=== PATIENT | female | born 1945 | race Caucasian/White ===

== ENCOUNTER 2018-06-26 05:26 | Day surgery (SDC) | payer MEDICARE, OTHER, SELFPAY ==
[2018-06-26] VITALS (13 sets, daily range): BP systolic 89–170; BP diastolic 47–106; PULSE 52–56; RESP 16; TEMP 35.9–36.1; O2SAT 94–100; BMI 33.3
--- NOTE | 2018-06-26 06:14 | HP.PCM_ITS ---
Problem List (1) Family history of malignant neoplasm of colon in first degree relative diagnosed when younger than 60 years of age Status: Acute History of Present Illness Date of Admission: 06/26/18 The patient is a 72 year old F who presents for surveillance colonoscopy based upon a family history of colon cancer in her brother. Her last colonoscopy was 5 years ago. She has had some mild intentional weight loss. She denies bright red blood per rectum or melena. No abdominal pain. She states that she is not previously had a colon cancer or colon polyps. She otherwise is enjoying good health. She has not had any recent hospitalizations. She presents via our open access program today. Past Medical History Allergies Androgenic Anabolic Steroid Allergy (Verified 11/26/13 11:19) Other Home Medications: Ambulatory Orders Medication Instructions Recorded Aspirin E.C. [Ecotrin] 81 mg PO DAILY@0800 11/26/13 Atorvastatin Calcium [Lipitor] 40 mg PO QHS 11/26/13 Ca/D3/Mag Ox/Zinc/Fishing Vessel Captain/[place]ingo/Bor 1 each PO DAILY 11/26/13 [Calcium 600+D3 Plus Caplet] Guar Gum [Fiber] 500 mg PO DAILY 11/26/13 Losartan Potassium [Cozaar] 100 mg PO QHS 11/26/13 Metoprolol(XL)Succ [Toprol Xl 50 mg PO BID 11/26/13 (Beta Trisha)] Amlodipine [Norvasc] 5 mg PO QHS 06/25/18 Cholecalciferol (VIT D3) [Vitamin 1,000 unit PO BID 06/25/18 D] CycloSPORINE Ophthalmic [Restasis 1 drop EACH EYE BID 06/25/18 Ophthalmic] Dorzolamide HCL/Timolol [Cosopt 1 drop EACH EYE BID 06/25/18 Opth Drops] Latanoprost 0.005% [Xalatan 1 drop RIGHT EYE QHS 06/25/18 Opthalmic] Fourmile-3 Fatty Acids/Fish Oil [Fish 1 each PO BID 06/25/18 Oil 1,000 mg Capsule] Smoking Status: Never smoker Tobacco Use: Non-smoker Review of Systems Constitutional: Denies: Anorexia HEENT: Denies: Difficulty Swallowing Cardiovascular: Denies: Chest Pain Respiratory: Denies: Cough Gastrointestinal: Denies: Abdominal Pain, Hematochezia, Melena Psychiatric: Denies: Anxiety Endocrine: Reports: Change in Body Habitus VTE Information - Inpt Only VTE Present on Admission: No Patient Problems: Active and Suspected Problems Family history of malignant neoplasm of colon in first degree relative diagnosed when younger than 60 years of age (Acute) - Physical Exam General: Alert, Oriented x3, Cooperative, No apparent distress HEENT: Atraumatic Oral: Moist Mucosa Lungs: Clear to auscultation Cardiovascular: Regular rate, Regular Rhythm Abdomen: Bowel Sounds Present, Soft, Non Tender Psych/Mental Status: Normal Affect Vital Signs Temp Pulse Resp BP Pulse Ox 96.7 F L 56 L 16 132/75 H 100 06/26/18 05:52 06/26/18 05:52 06/26/18 05:52 06/26/18 05:52 06/26/18 05:52 Oxygen Delivery Method Room Air Weight: 170 lb 6.677 oz Body Mass Index (BMI) 33.3 Assessment/Plan All Active Problems Family history of malignant neoplasm of colon in first degree relative diagnosed when younger than 60 years of age (Acute) I am recommending to the patient a colonoscopy with possible biopsy or polypectomy as indicated. She is aware of the technique, benefits, risks, alternatives. She has had an opportunity to ask and have questions answered. We will proceed with IV sedation. As noted she presents via open access. Taj Champion M.D., F.A.C.S.
--- NOTE | 2018-06-26 07:05 | OP.ENDO_ITS ---
06/26/2018 Janusz Broderick Re : Colonoscopy procedure for Jil Hanna Dear Meggan This procedure was performed on Tuesday, June 26, 2018. My impressions and recommendations are as follows: Impressions : - Hemorrhoids found on perianal exam. - Diverticulosis in the sigmoid colon and in the descending colon. - The examination was otherwise normal. - No specimens collected. Recommendations : - Discharge patient to home. - Resume previous diet. - Continue present medications. - Repeat colonoscopy in 5 years for surveillance. My findings are described in the full procedure note, which is enclosed. If I can be of further assistance, please feel free to contact me at Doctor phone number(s): Work: . Sincerely, Taj Champion MD 06/26/2018 7:04:33 AM This report has been signed electronically.
== END 2018-06-26 08:51 | disposition home or self-care (01) ==
LOC: EN 05:27 → AC 05:30
PROVIDERS: Family Provider Family Medicine; PCP Family Medicine; Referring Provider Family Medicine; Visit Provider Surgery
PROC: 0DJD8ZZ Inspection of Lower Intestinal Tract, Via Natural or Artificial Opening Endoscopic (ICD-10-PCS; CPT 45378; principal; 2018-06-26 06:25)
DX: Z12.11 Encounter for screening for malignant neoplasm of colon (principal); K57.30 Diverticulosis of large intestine without perforation or abscess without bleeding; K64.9 Unspecified hemorrhoids; Z80.0 Family history of malignant neoplasm of digestive organs
CPT/HCPCS: 45378; 99152; 99153; J7120

== ENCOUNTER → 2019-07-22 | Outpatient (CLI) | payer MEDICARE, OTHER, SELFPAY ==
[2018-06-26 05:52] VITALS: BMI 33.3
--- NOTE | 2019-07-22 12:18 | BI_ITS ---
MAMMOGRAPHY - BILATERAL SCREENING REASON FOR EXAM: Female, 73 years old. Routine annual screening examination. PERTINENT HISTORY: FAM HX PAT 1ST COUSIN 70''S STEREO NEEDLE BX 1994? WHICH BREAST RT EXC BX 1988 LT BREAST IMF AREA TEARS EASILY TECHNIQUE: Digital bilateral breast pankaj (3D mammographic acquisition) in the CC and MLO projections. 2-D mediolateral oblique (MLO) and craniocaudad (CC) views of both breasts were obtained. CAD: Full Field Digital Mammography with Computer Added Detection was performed. COMPARISON: 02/18/2016 FINDINGS: Breast Composition: There are scattered areas of fibroglandular density. There are no dominant masses or suspicious calcifications. No other significant abnormalities are identified. BI/SCREEN MAMM (CAD) W/PANKAJ BILAT IMPRESSION: Stable bilateral screening mammogram. Yearly follow-up mammogram recommended. (A) ASSESSMENT CATEGORY: BIRADS Category 2: Benign. A letter regarding these results will be sent to the patient by the facility within 30 days. Approximately 10% of breast cancers are not detected by mammography. A normal mammogram should not delay biopsy of a clinically suspicious abnormality. [id number] Electronically Signed: Annelise Alicea, at 12:13 EDT Tel , Service support ,
== END | disposition home or self-care (01) ==
LOC: OPBI 12:18
PROVIDERS: PCP Family Medicine; Referring Provider Nurse Practitioner Women's Health; Visit Provider Nurse Practitioner Women's Health
DX: Z12.31 Encounter for screening mammogram for malignant neoplasm of breast (principal)
CPT/HCPCS: 77063; 77067

== ENCOUNTER → 2019-07-30 12:50 | Outpatient (CLI) | payer MEDICARE, OTHER, SELFPAY ==
[2019-07-22 13:20] VITALS: BMI 33.3
--- NOTE | 2019-07-30 12:58 | BD_ITS ---
STUDY: DUAL ENERGY X-RAY ABSORPTIOMETRY / DXA REASON FOR EXAM: Female, 73 years old. CLINICAL PRACTICE CONSULTANT -- TAKES DIURETIC NEEDED -- TAKES MULTIVITAMIN -- HX OF TAKING FOSAMAX -- DOES LITTLE EXERCISE -- FAMILY HX OF OSTEO -- DM OF 0.5 INCH TECHNIQUE: Bone Mineral Density (BMD) measurements of lumbar spine and bilateral hips were obtained. COMPARISON: Comparison is made with prior examination dated November 10, 2016. FINDINGS: Lumbar Spine (L1-L4): g/cm2 (1.204) / T-score (0.3) / Z-score (2.1) Findings are suggestive of normal bone density with a low fracture risk. Left Femur Total: g/cm2 (0.991) / T-score (-0.1) / Z-score (1.6) Left Femoral Neck: g/cm2 (0.911) / T-score (-0.9) / Z-score (1.0) Right Femur Total: g/cm2 (0.997) / T-score (-0.1) / Z-score (1.7) Right Femoral Neck: g/cm2 (0.860) / T-score (-1.3) / Z-score (0.7) The T-Scores on the most recent prior examination were: Lumbar Spine (L1-L4): There has been worsening of bone density since the previous examination. Left Femur Total: which represents a worsening of 4.6%. Right Femur Total: which represents a worsening of 4.5%. BD/Dexa Bone Density Study IMPRESSION: The patient is considered osteopenic as outlined below according to World Will Organization (WHO) criteria with a low fracture risk. There has been worsening of bone density since the previous examination. Reference Information: The T-score is the number of standard deviations above or below the standard which is normal for young adults at their peak bone mineral density. The World Health Organization (WHO) interprets the T-scores as follows: Above -1 Normal bone density Between -1 and -2.5 Osteopenia Equal to / or below -2.5 Osteoporosis As a practical clinical guideline, osteopenia may be graded as follows: Mild -1 through -1.5 Moderate -1.6 through -2.0 Severe -2.1 through -2.4 The Z-score is the number of standard deviations above or below age-matched controls. A Z-score of less than -1.5 would be considered abnormal. References: 1. NIH Osteoporosis and Related Bone Diseases http://www.osteo.org 2. International Society for Clinical Densitometry http://www.iscd.org 3. National Osteoporosis Foundation http://www.nof.org Electronically Signed: Hitesh Ramirez, at 14:11 EDT , Service support ,
== END ==
PROVIDERS: PCP Family Medicine; Referring Provider Nurse Practitioner Women's Health; Visit Provider Nurse Practitioner Women's Health
DX: Z78.0 Asymptomatic menopausal state (principal)
CPT/HCPCS: 77080

== ENCOUNTER → 2021-08-12 | Outpatient (CLI) | payer MEDICARE, OTHER, SELFPAY ==
--- NOTE | 2021-08-12 08:39 | BI_ITS ---
MAMMOGRAPHY - BILATERAL SCREENING REASON FOR EXAM: Female, 75 years old. Routine annual screening examination. PERTINENT HISTORY: Non-contributory. Remote right excisional breast biopsy. TECHNIQUE: Digital bilateral breast pankaj (3D mammographic acquisition) in the CC and MLO projections. 2-D mediolateral oblique (MLO) and craniocaudad (CC) views of both breasts were obtained. CAD: Full Field Digital Mammography with Computer Added Detection was performed. COMPARISON: Comparison is made with prior study of 07/22/2019. FINDINGS: Breast Composition: The breasts are almost entirely fatty. There are no dominant masses or suspicious calcifications. No other significant abnormalities are identified. There has been no significant change since the prior study. BI/SCRN MAMM (CAD)W/PANKAJ BILAT IMPRESSION: Stable bilateral screening mammogram. Yearly follow-up mammogram recommended. (A) ASSESSMENT CATEGORY: BIRADS Category 1: Negative. A letter regarding these results will be sent to the patient by the facility within 30 days. Approximately 10% of breast cancers are not detected by mammography. A normal mammogram should not delay biopsy of a clinically suspicious abnormality. [id number] Electronically Signed: Hitesh Ramirez MD at 9:35 EDT ,
== END | disposition home or self-care (01) ==
LOC: OPBI 08:38
PROVIDERS: PCP Family Medicine; Referring Provider Nurse Practitioner Women's Health; Visit Provider Nurse Practitioner Women's Health
DX: Z12.31 Encounter for screening mammogram for malignant neoplasm of breast (principal)
CPT/HCPCS: 77063; 77067

== ENCOUNTER → 2021-08-27 | Outpatient (CLI) | payer MEDICARE, OTHER, SELFPAY ==
--- NOTE | 2021-08-27 16:47 | CT_ITS ---
EXAM: CT RIGHT UPPER EXTREMITY WITHOUT INTRAVENOUS CONTRAST CLINICAL INDICATION: SECONDARY OSTEOARTHRITIS TECHNIQUE: Helically acquired images were obtained of the right upper extremity without intravenous contrast. 2-D reformats were performed by the technologist. This CT exam was performed using one or more of the following dose reduction techniques: automated exposure control, adjustment of the mA and/or kV according to patient size, and/or use of iterative reconstruction technique. This report was created using [employer] report generation technology. RADIATION DOSE: CTDIvol = 29.06 mGy, DLP = 581.83 mGy-cm COMPARISON: None. FINDINGS: BONES/JOINTS: Mild osteoarthritis of the acromioclavicular joint with sclerosis of the acromion process. Moderate to severe narrowing of the glenohumeral joint with mild cephalad migration of the humeral head. Subchondral cystic changes of the glenoid fossa and articular surface of the humeral head. Degenerative spur of the superior aspect of the radial head which probably impinge on the supraspinatus tendon. Calcification in the inferior aspect of the glenohumeral joint in the soft tissues. No evidence of acute fracture or dislocation. SOFT TISSUES: Small soft tissue calcification in the subdeltoid bursa measuring about 7 mm consistent with calcific tendinitis. The visualized portions of the lung apices demonstrate no evidence of pneumothorax. CT/Extremity Upper without Contra IMPRESSION: 1. Mild degenerative arthrosis of the clavicular joint. 2. Moderate severe degenerative arthrosis of the glenohumeral joint changes impinge on the rotator cuff. 3. Calcific tendinitis. 4. No demonstrated acute osseous changes. Electronically Signed: Smith Arroyo MD at 9:31 EDT ,
== END | disposition home or self-care (01) ==
LOC: CT 16:46
PROVIDERS: PCP Family Medicine; Visit Provider Specialist
DX: M19.211 Secondary osteoarthritis, right shoulder (principal)
CPT/HCPCS: 73200

== ENCOUNTER 2022-02-22 15:36 | Emergency (ER) | payer MEDICARE, OTHER, SELFPAY ==
[2022-02-22 15:37] VITALS: BP 149/75; PULSE 75; RESP 18; TEMP 37.6; O2SAT 96; BMI 33.7
[2022-02-22 15:40] VITALS: BP 149/75; PULSE 75; RESP 18; TEMP 37.6; O2SAT 96
--- NOTE | 2022-02-22 16:23 | CT_ITS ---
STUDY: CT CERVICAL SPINE WITHOUT CONTRAST REASON FOR EXAM: Female, 76 years old. fall RADIATION DOSAGE (If Supplied By Facility): CTDIvol = ( 20.06 ) mGy, DLP = ( 429.15 ) mGycm TECHNIQUE: High resolution transaxial imaging was performed without contrast material. Sagittal and coronal images were reconstructed. Individualized dose optimization techniques were used for this CT. COMPARISON: None FINDINGS: Normal craniovertebral junction. There are degenerative changes of the anterior atlantoaxial articulation. Normal odontoid process. Normal cervical lordosis. Normal vertebral bodies and posterior osseous elements. Bilateral small of the cervical ribs. C2-3: Moderate right facet hypertrophy and mild left facet hypertrophy with ankylosis of facet joints. No spinal stenosis or neural foraminal stenosis. C3-4: Severe bilateral facet hypertrophy. 5 mm of anterolisthesis of C3 on C4 with no spinal stenosis or neural foraminal stenosis. C4-5: Mild broad disc osteophyte complex and bilateral uncovertebral hypertrophy produces mild spinal stenosis and mild bilateral neural foraminal stenosis. C5-6: Mild broad disc osteophyte complex and bilateral uncovertebral hypertrophy produces mild spinal stenosis and mild bilateral neural foraminal stenosis. C6-7: Mild broad disc osteophyte complex and bilateral uncovertebral hypertrophy produces mild spinal stenosis and mild bilateral neural foraminal stenosis. C7-T1: Normal endplates. Normal disc height and morphology. Normal central canal and intervertebral neuroforamina. Normal visualized soft tissue structures. CT/Spine Cervical without Contras IMPRESSION: 1. No acute fracture. 2. Degenerative disc disease with 5 mm of anterolisthesis of C3 on C4. Electronically Signed: Alonzo Presley MD at 17:47 EST ,
--- NOTE | 2022-02-22 16:23 | CT_ITS ---
STUDY: CT BRAIN WITHOUT CONTRAST REASON FOR EXAM: Female, 76 years old. fall RADIATION DOSAGE (If Supplied By Facility): CTDIvol = ( 47.06 ) mGy, DLP = ( 855.03 ) mGycm TECHNIQUE: Transaxial CT imaging of the brain was performed without administration of intravenous contrast material. Individualized dose optimization techniques were used for this CT. COMPARISON: No relevant priors. FINDINGS: Normal soft tissue structures. Normal calvarium. Normal size ventricles and extra-axial spaces for the patient''s age. Normal white matter tracts of the cerebral hemispheres. Normal basal ganglia and thalami. Normal brainstem. Normal cerebellum. There is no intracranial hemorrhage. There are no findings of an acute ischemic infarction. There is mucoperiosteal inflammatory disease of the paranasal sinuses consistent with moderate chronic sinusitis. CT/Brain/Head without Contrast IMPRESSION: Normal unenhanced CT scan of the brain. Electronically Signed: Alonzo Presley MD at 17:42 EST ,
--- NOTE | 2022-02-22 16:26 | EDS_ITS ---
HPI <MARCELL Quezada - Last Filed: 02/22/22 20:00> History of Present Illness Chief Complaint: Fall Narrative Narrative: Patient presents today with her 2 nieces after falling twice earlier today. She states she thinks she tested positive for COVID today, but is not sure because she does not think she took the test right and it was . Patient has had a runny nose and cough for the past few days. Earlier today patient walked down to the mailbox and dropped her mail in the driveway, she leaned over to warp picker the mail and fell on her face. She suffered an abrasion to her nose and forehead as well as a laceration to her upper lip. She was able to get back up and walk inside. She then made an appointment with her PCP to be evaluated for the fall. She went into the bathroom to get ready for this appointment and dropped her mouthwash on the floor, leaned over to pick it up, and fell again but this time hit the back of her head. She then came here to be evaluated. Patient takes a baby aspirin daily but does not take any blood thinners. Patient denies loss of consciousness during both falls, head pain, neck pain, chest pain, shortness of breath, back pain, and extremity pain. [facility] <MARCELL Quezada - Last Filed: 02/22/22 20:00> [facility] Home Medications Ca 600 mg-D3 20 mcg-mag oxide 50 vr-Eu-phbacp-manganese-boron tablet 1 ea PO DAILY 11/26/13 [History Last Taken Unknown] aspirin 81 mg tablet,delayed release 81 mg PO DAILY@0800 11/26/13 [History Last Taken 06/25/18] atorvastatin 40 mg tablet 40 mg PO QHS 11/26/13 [History Last Taken Unknown] guar gum 1 gram chewable tablet 500 mg PO DAILY 11/26/13 [History Last Taken Unknown] losartan 100 mg tablet 100 mg PO QHS 11/26/13 [History Last Taken Unknown] metoprolol succinate 50 mg tablet,extended release 24 hr 50 mg PO BID 11/26/13 [History Last Taken 06/26/18 04:30] amlodipine 5 mg tablet 5 mg PO QHS 06/25/18 [History Last Taken Unknown] cholecalciferol (vitamin D3) 25 mcg (1,000 unit) tablet 1,000 unit PO BID 06/25/18 [History Last Taken Unknown] cyclosporine 0.05 % eye drops in a dropperette 1 drp EACH EYE BID 06/25/18 [History Last Taken Unknown] dorzolamide 22.3 mg-timolol 6.8 mg/mL eye drops 1 drp EACH EYE BID 06/25/18 [History Last Taken Unknown] latanoprost 0.005 % eye drops 1 drp RIGHT EYE QHS 06/25/18 [History Last Taken Unknown] omega-3 fatty acids-fish oil 340 mg-1,000 mg capsule 1 ea PO BID 06/25/18 [History Last Taken Unknown] nystatin 100,000 unit/gram topical cream 1 applic topical BID 7 days #15 grams 07/22/19 [Rx Last Taken Unknown] triamcinolone acetonide 0.5 % topical cream 1 applic topical BID 7 days #15 grams 07/22/19 [Rx Last Taken Unknown] Allergy/AdvReac Type Severity Reaction Status Date / Time Androgenic Anabolic Steroid Allergy Other Verified 02/22/22 15:37 brimonidine [From Alphagan P] AdvReac red and Verified 02/22/22 15:37 swollen Social History number of children: 0 current occupational status: retired Smoking Status: Never smoker alcohol intake: current Alcohol type: wine seatbelt use: always do you feel safe at home: Yes ROS <MARCELL Quezada - Last Filed: 02/22/22 20:00> ROS ED Constitutional Constitutional ED: Denies chills, fever(s) or sweats Eyes Eyes: Denies blurry vision or change in vision ENT ENT ED: Reports rhinorrhea; Denies sore throat Cardiovascular Cardiovascular: Denies chest pain, palpitations or racing heartbeat Respiratory/Chest Respiratory/Chest: Reports cough; Denies dyspnea or dyspnea on exertion Gastrointestinal Gastrointestinal: Denies abdominal pain, constipation, diarrhea, nausea or vomiting Genitourinary Genitourinary ED: Denies dysuria, hematuria or urinary frequency Musculoskeletal Musculoskeletal: Denies arthralgias, back pain, myalgias or neck pain Integumentary Reports Abrasions and laceration; Denies abscess Neurologic Neurologic: Denies headache(s), paresthesias or weakness Psychiatric Psychiatric: Denies anxiety, depression or suicidal thoughts Hematologic/Lymphatic Hematologic/Lymphatic: Denies easy bleeding EXAM <MARCELL Quezada - Last Filed: 02/22/22 20:00> Physical Exam Const Vital Signs: 02/22/22 15:37 02/22/22 15:40 02/22/22 15:40 Temperature 99.6 F H 99.6 F H Temperature Source Temporal Temporal Pulse Rate 75 75 Respiratory Rate 18 18 Respiratory Effort Normal Non-Labored Respiratory Pattern Normal Blood Pressure 149/75 H 149/75 H Blood Pressure Mean 99 99 Pulse Ox 96 96 Oxygen Delivery Method Room Air Room Air 02/22/22 18:40 Temperature Temperature Source Pulse Rate 78 Respiratory Rate 15 Respiratory Effort Respiratory Pattern Blood Pressure Blood Pressure Mean Pulse Ox 97 Oxygen Delivery Method Positive well nourished and well developed General Appearance ED: well developed and NAD HEENT HEENT Narrative: Patient has a small abrasion to her forehead as well as an abrasion and some edema to the bridge of her nose. Patient has a 1/2 inch complex laceration to her upper lip. No tenderness to the head. Negative for tenderness Eyes PERRL and EOMs intact bilaterally Neck full ROM General: Negative for tenderness Chest Wall inspection of chest normal Resp normal respiratory effort and clear to auscultation bilaterally Cardio regular rhythm and no murmurs Rate: regular rate GI non-tender, non-distended and no masses Palpation: soft Back/Spine normal to inspection and no thoracic nor lumbar tenderness Extremity normal to inspection and full ROM Neuro oriented x3, CN's II-XII intact bilaterally, moves all extremities, no focal motor deficits, no sensory deficits noted and gait normal Sensorium / Orientation: alert Motor Exam: strength 5/5 throughout Psych mental status grossly normal and thought process normal Skin skin turgor normal Skin Narrative: see above. <Dr. Noman Pete MD - Last Filed: 02/22/22 21:00> Physical Exam Const Vital Signs: 02/22/22 15:37 02/22/22 15:40 02/22/22 15:40 Temperature 99.6 F H 99.6 F H Temperature Source Temporal Temporal Pulse Rate 75 75 Respiratory Rate 18 18 Respiratory Effort Normal Non-Labored Respiratory Pattern Normal Blood Pressure 149/75 H 149/75 H Blood Pressure Mean 99 99 Pulse Ox 96 96 Oxygen Delivery Method Room Air Room Air 02/22/22 18:40 Temperature Temperature Source Pulse Rate 78 Respiratory Rate 15 Respiratory Effort Respiratory Pattern Blood Pressure Blood Pressure Mean Pulse Ox 97 Oxygen Delivery Method PROC <MARCELL Quezada - Last Filed: 02/22/22 20:00> Procedures Lacerations laceration: Length: 1 cm Depth: Skin Shape: Flap Prep: Sterile Conditions and Chlorhexadine Laceration repair: Irrigated, Lidocaine and Skin sutures Irrigated (ml): 70 Number of Sutures/Lauryn: 4 Suture Information: Ethilon (5-0) MDM <MARCELL Quezada - Last Filed: 02/22/22 20:00> MDM MDM Narrative Medical decision making narrative: Patient tested positive for influenza A. Patient's laceration was cleaned, irrigated, and 4 sutures were placed. Patient has been given instructions on how to keep area clean and and signs of infection to look out for. She has been told to follow-up with PCP in 4 to 5 days to get these removed. I think patient's falls can be attributed to her having the flu and overall just feeling fatigued and not being well-hydrated. She has has been drinking p.o. fluids here. I do not think she needs IV fluids. Patient was no acute distress. She is nontoxic-appearing. Her vitals have remained stable. She was given ibuprofen for fever. CT of the head does not show any acute processes. Cervical spine CT negative for fracture. shoulder x-ray negative for fracture. Lab Data Attestation: I reviewed the patient's lab results. Lab results narrative: H&H 11.4 and 36.5. Mild gap 4. Sodium 135 Labs: Laboratory Results - last 24 hr 02/22/22 02/22/22 17:06 17:06 WBC 7.1 RBC 3.58 L Hgb 11.4 L Hct 36.5 L MCV 102.0 H MCH 31.8 MCHC 31.2 L RDW Std Deviation 50.9 H RDW Coeff of James 13.5 Plt Count 141 L MPV 11.1 Immature Gran % (Auto) 0.300 Neut % (Auto) 76.7 H Lymph % (Auto) 10.0 L [place] % (Auto) 12.9 H Eos % (Auto) 0.0 Baso % (Auto) 0.1 Absolute Neuts (auto) 5.5 Absolute Lymphs (auto) 0.71 L Nucleated RBC % 0 Sodium 135 L Potassium 4.3 Chloride 106 Carbon Dioxide 25.0 Anion Gap 4 L BUN 17 Creatinine 0.76 Estim Creat Clear Calc 33.30 Est GFR (MDRD) Af Amer 95 Est GFR (MDRD) Non-Af 79 BUN/Creatinine Ratio 22.5 H Glucose 102 Calcium 8.2 L Radiography Diagnostic Testing: Clinical Impression(s) from Imaging Studies Brain CT 02/22/22 16:23 IMPRESSION: Normal unenhanced CT scan of the brain. Electronically Signed: Alonzo Presley MD at 17:42 EST Reading Location ID and State: [id number] / [employer] Tel , Service support , Cervical Spine CT 02/22/22 16:23 IMPRESSION: 1. No acute fracture. 2. Degenerative disc disease with 5 mm of anterolisthesis of C3 on C4. Electronically Signed: Alonzo Presley MD at 17:47 EST Reading Location ID and State: [id number] / [employer] , Service support , Shoulder X-Ray 02/22/22 16:45 IMPRESSION: Normal x-ray examination of the shoulder after reversal arthroplasty. No acute fracture or dislocation.. Electronically Signed: Alonzo Presley MD at 17:19 EST Reading Location ID and State: [id number] / [employer] Tel , Service support , These have all been reviewed by attending ED physician. EKG Initial EKG: Interpretation: Sinus Rhythm Comments: [address] elevation. This has also been reviewed by attending ED physician. <Dr. Noman Pete MD - Last Filed: 02/22/22 21:00> [facility] Lab Data Labs: Laboratory Results - last 24 hr 02/22/22 02/22/22 17:06 17:06 WBC 7.1 RBC 3.58 L Hgb 11.4 L Hct 36.5 L MCV 102.0 H MCH 31.8 MCHC 31.2 L RDW Std Deviation 50.9 H RDW Coeff of James 13.5 Plt Count 141 L MPV 11.1 Immature Gran % (Auto) 0.300 Neut % (Auto) 76.7 H Lymph % (Auto) 10.0 L [place] % (Auto) 12.9 H Eos % (Auto) 0.0 Baso % (Auto) 0.1 Absolute Neuts (auto) 5.5 Absolute Lymphs (auto) 0.71 L Nucleated RBC % 0 Sodium 135 L Potassium 4.3 Chloride 106 Carbon Dioxide 25.0 Anion Gap 4 L BUN 17 Creatinine 0.76 Estim Creat Clear Calc 33.30 Est GFR (MDRD) Af Amer 95 Est GFR (MDRD) Non-Af 79 BUN/Creatinine Ratio 22.5 H Glucose 102 Calcium 8.2 L Radiography Diagnostic Testing: Clinical Impression(s) from Imaging Studies Brain CT 02/22/22 16:23 IMPRESSION: Normal unenhanced CT scan of the brain. Electronically Signed: Alonzo Presley MD at 17:42 EST Reading Location ID and State: [employer] / [employer] , Service support , Cervical Spine CT 02/22/22 16:23 IMPRESSION: 1. No acute fracture. 2. Degenerative disc disease with 5 mm of anterolisthesis of C3 on C4. Electronically Signed: Alonzo Presley MD at 17:47 EST Reading Location ID and State: [employer] / [employer] , Service support , Shoulder X-Ray 02/22/22 16:45 IMPRESSION: Normal x-ray examination of the shoulder after reversal arthroplasty. No acute fracture or dislocation.. Electronically Signed: Alonzo Presley MD at 17:19 EST Reading Location ID and State: [employer] / [employer] , Service support , Treatment and Re-Evaluation Narrative: I have personally performed a face to face assessment of the patient and have reviewed the QIANA Note. I performed a substantive portion of the visit including all aspects of the following. My fernandez findings include: History: Patient had 2 falls today. Both of these are when she bent over to pick something up. She just looks forward or backwards. She was not syncopal or lightheaded. She did hit her face. No loss of consciousness. No anticoagulation. Patient feels this might be because she has felt just mildly ill for a day or 2. She has had a little bit of a runny nose, mild scratchy throat and mild nonproductive cough but no dyspnea. Her appetite has been somewhat down although she is able to eat and drink fine and has no nausea vomiting or diarrhea. She did take a home COVID test that was positive. Patient is also concerned about shoulder because she had replacement recently but it is not hurting her. Exam: Patient awake alert and appropriate. She does have facial abrasions and a small laceration in the central portion of her upper lip. No active bleeding. No sign of bony or dental trauma. No cervical spine pain. Lungs are clear. No coughing while I am in the room. She is not hypoxic. Heart is regular. Abdomen is benign. No extremity pain or trauma. Medical Decison Making we will do a bit of a medical work-up here. Even though both of these falls sound mechanical, she did have 2 falls in the day which is not typical for her. This might be related to her mild URI. We will also send off one of our COVID test as she is not sure if she did hers correctly. Discharge Plan Triage Chief Complaint: Fall Other Complaint: Cough Weakness ED Midlevel Provider: Rose Mcclendon ED Provider: Noman Pete Dx/Rx/DC Orders Clinical Impression: Fall, Facial laceration, Influenza A Instructions: ED Influenza (Adult), ED Laceration: All Closures Prescriptions: No Action triamcinolone acetonide 0.5 % cream 1 applic topical BID 7 Days Qty: 15 2RF Rx Instructions: peasized amount as instructed nystatin 100,000 unit/gram cream 1 applic topical BID 7 Days Qty: 15 2RF Rx Instructions: apply peasized amount as instructed atorvastatin 40 MG tablet 40 mg PO QHS metoprolol succinate 50 MG tablet 50 mg PO BID aspirin 81 MG tablet 81 mg PO DAILY@0800 losartan 100 MG tablet 100 mg PO QHS guar gum 1 GM tablet,chewable 500 mg PO DAILY Ca-D3-mag xr-yull-hto-dara-bor 1 EACH tablet 1 ea PO DAILY latanoprost 1 DROP bottle 1 drp RIGHT EYE QHS amlodipine 5 MG tablet 5 mg PO QHS dorzolamide-timolol 1 DROP bottle 1 drp EACH EYE BID cyclosporine 1 DROP dropperette 1 drp EACH EYE BID cholecalciferol (vitamin D3) 1,000 UNIT tablet 1,000 unit PO BID omega-3 fatty acids-fish oil 1 EACH capsule 1 ea PO BID Primary Care Provider: Janusz Broderick Referrals: Janusz Broderick MD [Primary Care Provider] - 3-5 Days suture removal Activity Restrictions/Additional Instructions: Please keep suture area clean. Clean twice daily with mild soap and water. Please remove sutures in 4 to 5 days. Follow-up if you notice any signs of infection such as increased redness, pus-like discharge, fever. Disposition Disposition: Home, Self Care Discharge Date/Time: 02/22/22 19:20
--- NOTE | 2022-02-22 16:45 | RAD_ITS ---
STUDY: X-RAY - RIGHT SHOULDER REASON FOR EXAM: Female, 76 years old. fall TECHNIQUE: 4 view(s) of the shoulder. COMPARISON: None. FINDINGS: Status post reverse arthroplasty. Normal acromioclavicular joint. Normal acromion. Normal humeral head and visualized proximal humerus. The soft tissue structures are unremarkable. Normal visualized pulmonary apex. RAD/Shoulder min 2 Views IMPRESSION: Normal x-ray examination of the shoulder after reversal arthroplasty. No acute fracture or dislocation.. Electronically Signed: Alonzo Presley MD at 17:19 EST ,
--- NOTE | 2022-02-22 17:02 | EKG12_ITS ---
Test Reason : Blood Pressure : / mmHG Vent. Rate : 074 BPM Atrial Rate : 074 BPM P-R Int : 192 ms QRS Dur : 084 ms QT Int : 386 ms P-R-T Axes : 049 016 021 degrees QTc Int : 428 ms Normal sinus rhythm Normal ECG Confirmed by ANDREE WASHINGTON MD ([id number]), electronic news gathering editor RACHID OMER ([id number]) on 02/23/2022 11:13:31 AM Referred By: PL Confirmed By:ANDREE WASHINGTON MD
--- NOTE | 2022-02-22 17:06 | NURSING ---
NO OLD EKGS
[2022-02-22] MEDS: Diphth,Pertuss(Acell),Tet Vac 0.5 ML Vial IM (17:09)
[2022-02-22 17:19] LABS: Absolute Lymphocyte Count 0.71 X10^3/uL (0.83-4.51); Absolute Neutrophil Count 5.5 X10^3/uL (2.0-7.7); Basophil# 0.01 X10^3/uL; Basophil% 0.1 % (0-1); Hematocrit 36.5 % (37-47); Hemoglobin 11.4 g/dL (12.0-15.0); Lymphocyte # 0.71 X10^3/ul (0.83-4.51); Mean Corp Hgb Conc 31.2 g/dL (32-36); Mean Corpuscular Hgb 31.8 pg (27.0-32.0); Mean Platelet Vol. 11.1 fl (6.2-12.0); Monocyte# 0.92 X10^3/uL; Monocyte% 12.9 % (0-10); NRBC Flagged by Analyzer 0 % (0-5); Neutrophil # 5.45 X10^3/uL (2.7-7.7); Neutrophil % 76.7 % (47-70); Platelet Count 141 K/mm3 (150-450); RBC Distribution Width CV 13.5 % (11.6-14.6); RBC Distribution Width SD 50.9 fl (35.1-43.9); Red Blood Count 3.58 M/mm3 (4.2-5.4); White Blood Count 7.1 K/mm3 (4.4-11.0)
[2022-02-22 17:40] LABS: Anion Gap 4 (5-15); BUN 17 mg/dL (7-18); BUN/Creat Ratio 22.5 RATIO (10-20); Calcium,Total 8.2 mg/dL (8.5-10.1); Chloride 106 mmol/L (98-107); Creatinine, Serum 0.76 mg/dL (0.55-1.02); EST Glomerular Filtration Rate 79 mL/min (>60); Est Glom Filt Rate - Afr Amer 95 mL/min (>60); Glucose 102 mg/dL (74-106); Potassium 4.3 mmol/L (3.5-5.1); Sodium Level 135 mmol/L (136-145)
[2022-02-22 18:40] VITALS: PULSE 78; RESP 15; O2SAT 97
[2022-02-22] MEDS: Lidocaine 1% (20 ml mdv) 20 ML Vial 10 ML INFILT (19:19)
[2022-02-22] MEDS: Ibuprofen 200 MG Tablet 400 MG PO (19:19)
== END 2022-02-22 19:20 | disposition home or self-care (01) ==
PROVIDERS: Physician Assistant; Emergency Provider Emergency Medicine; PCP Family Medicine; Visit Provider Emergency Medicine
DX: S01.81XA Laceration without foreign body of other part of head, initial encounter (principal); J10.1 Influenza due to other identified influenza virus with other respiratory manifestations; Z23 Encounter for immunization; W19.XXXA Unspecified fall, initial encounter
CPT/HCPCS: 70450; 72125; 73030; 80048; 85025; 87428; 90471; 90715; 93005; 99284; A4216

== ENCOUNTER → 2022-09-20 | Outpatient (CLI) | payer MEDICARE, OTHER, SELFPAY ==
--- NOTE | 2022-09-20 15:45 | BI_ITS ---
MAMMOGRAPHY - BILATERAL SCREENING 3-D TOMOSYNTHESIS REASON FOR EXAM: Female, 77 years old. Routine screening PERTINENT HISTORY: Cousin with breast cancer. TECHNIQUE: 2-D mammograms and 3-D Tomosynthesis of the breast (s) were performed. CAD was performed. COMPARISON: 07/22/2019 FINDINGS: The breast composition is almost entirely fat. Scattered benign calcifications are seen. No dense spiculated masses or suspicious microcalcifications are identified. No architectural distortion is identified. There is no skin thickening or retraction. There has been no significant change since the prior study. BI/SCRN MAMM (CAD)W/PANKAJ BILAT IMPRESSION: No mammographic signs of malignancy. Routine yearly mammograms recommended. ASSESSMENT CATEGORY: BIRADS Category 1: Negative. A letter regarding these results will be sent to the patient by the facility within 30 days. FOLLOW UP RECOMMENDATION: Yearly follow up mammogram recommended. (A) Approximately 10% of breast cancers are not detected by mammography. A normal mammogram should not delay biopsy of a clinically suspicious abnormality. Electronically Signed: Rodriguez Wright MD at 18:38 EDT ,
== END | disposition home or self-care (01) ==
LOC: OPBI 15:43
PROVIDERS: PCP Family Medicine; Referring Provider Nurse Practitioner Women's Health; Visit Provider Nurse Practitioner Women's Health
DX: Z12.31 Encounter for screening mammogram for malignant neoplasm of breast (principal)
CPT/HCPCS: 77063; 77067

== ENCOUNTER → 2022-11-03 | Outpatient (CLI) | payer MEDICARE, OTHER, SELFPAY ==
--- NOTE | 2022-11-03 07:20 | MRI_ITS ---
INDICATION: NEW ONSET RIGHT HEMIFACIAL SPASM EXAMINATION: MRI - MR Orbits WO/W Contrast TECHNIQUE: MRI examination of brain and orbits obtained with standard protocol including multiplanar multiecho imaging. Pre and Postcontrast imaging obtained. IV Contrast Dosage and Agent: 50 AML clariscan IV COMPARISON: CT examination of 02/22/2022 FINDINGS: HEMISPHERES, CEREBELLUM AND BRAINSTEM: 1. The cerebral parenchyma, ventricular system, subarachnoid spaces have normal configuration and density. There is a normal gyral pattern. There is normal yip/white differentiation. No midline shift.. 2. Mild involutional changes and scattered chronic microvascular deep white matter disease. 3. No areas of fluid restriction or acute ischemia. No areas of hemosiderin deposition. 4. No intraparenchymal mass, hemorrhage, or acute territorial infarct. 5. The cerebellum, brainstem, basilar and suprasellar cisterns have normal appearance. No Chiari malformation. 6. No areas of abnormal intraparenchymal or extra-axial contrast enhancement. PITUITARY: Infundibulum and pituitary have normal configuration. Midline structures appear normal. CSF SPACES: Appropriate for age. No hydrocephalus. Basal cisterns are patent. VESSELS: 1. There are normal flow voids noted in the great vessels at the skull base 2. No filling defects noted within the visualized dural sinuses. ORBITS AND PARANASAL SINUSES: 1. Both globes, extraocular muscles, optic nerves and retrobulbar fat appear unremarkable. Postoperative changes of RIGHT cataract surgery. Normal appearance of the muscular ring bilaterally. Normal appearance of the nasal lacrimal apparatus. 2. Extensive LEFT ethmoid and LEFT frontal sinus disease. Moderate bilateral maxillary sinus disease. Moderate bilateral mastoid air cell mucosal thickening 3. Bilateral mastoid air cell disease greater on LEFT than RIGHT. BONY ELEMENTS: Normal appearance of bony elements cranial vault and visualized facial skeleton with the exception of an ovoid area of abnormal signal within the RIGHT side of the mandible, measuring approximately 1.3 x 1.2 cm, characterized by moderately elevated T2 signal and diminished T1 signal. There is fluid restriction. This may represent a cyst within the mandible with internal debris.. SCALP AND SOFT TISSUES: Normal appearance of the soft tissues of the scalp and the visualized face OTHER: None MRI/Brain W/WO Contrast IMPRESSION: 1. Diffuse involutional change, scattered chronic microvascular deep white matter disease. 2. No intraparenchymal mass, hemorrhage, or acute territorial infarct. 3. No areas of abnormal intraparenchymal or extra-axial contrast enhancement. 4. Sinus disease most notable involving the LEFT frontal and LEFT ethmoid sinuses. 5. Bilateral mastoid air cell disease greater on LEFT than RIGHT. 6. Ovoid lesion within the region of the ramus of the mandible, measuring 1.3 x 1.2 cm. This may be associated with the alveolar socket of the last RIGHT mandibular molar, alternatively a cyst within the mandible with internal debris is a consideration. Consider follow-up evaluation with CT of the face for more definitive evaluation. Electronically Signed: Alonzo Rodríguez MD at 1:15 EDT ,
== END | disposition home or self-care (01) ==
LOC: MRI 07:04
PROVIDERS: PCP Family Medicine; Referring Provider Ophthalmology; Visit Provider Ophthalmology
DX: G51.31 Clonic hemifacial spasm, right (principal)
CPT/HCPCS: 70553; A9575

== ENCOUNTER → 2023-10-05 | Outpatient (CLI) | payer MEDICARE, OTHER, SELFPAY ==
--- NOTE | 2023-10-05 14:50 | BI_ITS ---
MAMMOGRAPHY - BILATERAL SCREENING REASON FOR EXAM: Female, 78 years old. Routine annual screening examination. PERTINENT HISTORY: Non-contributory. History of prior right excisional breast biopsy. TECHNIQUE: Digital bilateral breast pankaj (3D mammographic acquisition) in the CC and MLO projections. 2-D mediolateral oblique (MLO) and craniocaudad (CC) views of both breasts were obtained. CAD: Full Field Digital Mammography with Computer Added Detection was performed. COMPARISON: Comparison is made with prior study dated September 20, 2022 and August 12, 2021. FINDINGS: Breast Composition: The breasts are almost entirely fatty. There are no dominant masses or suspicious calcifications. Stable secretory calcification in the retroareolar region of the left breast. No other significant abnormalities are identified. There has been no significant change since the prior study. BI/SCRN MAMM (CAD)W/PANKAJ BILAT IMPRESSION: Stable bilateral screening mammogram. Yearly follow-up mammogram recommended. (A) ASSESSMENT CATEGORY: BIRADS Category 2: Benign. A letter regarding these results will be sent to the patient by the facility within 30 days. Approximately 10% of breast cancers are not detected by mammography. A normal mammogram should not delay biopsy of a clinically suspicious abnormality. [id number] Electronically Signed: Hitesh Ramirez MD at 8:04 EDT ,
--- NOTE | 2023-10-05 15:12 | BD_ITS ---
STUDY: DUAL ENERGY X-RAY ABSORPTIOMETRY / DXA REASON FOR EXAM: Female, 78 years old. Screening for osteoporosis TECHNIQUE: Bone Mineral Density (BMD) measurements of lumbar spine and bilateral hips were obtained. COMPARISON: Comparison is made with prior study dated July 30, 2019. FINDINGS: Lumbar Spine (L1-L4): g/cm2 (1.149) / T-score (1.0) / Z-score (3.7) Findings are suggestive of normal bone density with a low fracture risk. Left Femur Total: g/cm2 (0.855) / T-score (-0.7) / Z-score (1.4) Left Femoral Neck: g/cm2 (0.629) / T-score (-2.0) / Z-score (0.3) Right Femur Total: g/cm2 (0.862) / T-score (-0.7) / Z-score (1.4) Right Femoral Neck: g/cm2 (0.677) / T-score (-1.5) / Z-score (0.8) The T-Scores on the most recent prior examination were: Lumbar Spine (L1-L4): There has been improvement of bone density since the previous examination. Left Femur Total: which represents a worsening of 7.6%. Right Femur Total: which represents a worsening of 7.5%. BD/Dexa Bone Density Study IMPRESSION: The patient is considered as outlined below according to World Will Organization (WHO) criteria with a moderate fracture risk. There has been worsening of bone density since the previous examination. Reference Information: The T-score is the number of standard deviations above or below the standard which is normal for young adults at their peak bone mineral density. The World Health Organization (WHO) interprets the T-scores as follows: Above -1 Normal bone density Between -1 and -2.5 Osteopenia Equal to / or below -2.5 Osteoporosis As a practical clinical guideline, osteopenia may be graded as follows: Mild -1 through -1.5 Moderate -1.6 through -2.0 Severe -2.1 through -2.4 The Z-score is the number of standard deviations above or below age-matched controls. A Z-score of less than -1.5 would be considered abnormal. References: 1. NIH Osteoporosis and Related Bone Diseases www osteo.org 2. International Society for Clinical Densitometry www iscd.org 3. National Osteoporosis Foundation www nof.org Electronically Signed: Hitesh Ramirez MD at 13:27 EDT ,
== END | disposition home or self-care (01) ==
LOC: OPBD 14:50
PROVIDERS: PCP Hospitalist; Referring Provider Nurse Practitioner Women's Health; Visit Provider Nurse Practitioner Women's Health
DX: Z12.31 Encounter for screening mammogram for malignant neoplasm of breast (principal); Z13.820 Encounter for screening for osteoporosis; M81.0 Age-related osteoporosis without current pathological fracture
CPT/HCPCS: 77063; 77067; 77080